=== PATIENT | female | born 1975 | race Caucasian/White ===

== ENCOUNTER 2022-02-14 23:16 | Inpatient (IN) | payer MEDICARE, OTHER ==
[2022-02-14] MEDS ORDERED: ZIPRASIDONE 20 MG VIAL IM STA (23:46)
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
[2022-02-15 07:52] LABS: Appearance,Urine Clear (Clear); Bilirubin,Urine Negative (Negative); Blood,Urine Negative (Negative); Color,Urine Colorless; Glucose,Urine (UA) 4+ (Negative); Ketones,Urine Negative (Negative); Leukocyte Esterase,Urine Negative (Negative); Nitrite,Urine Negative (Negative); Protein,Urine Negative (Negative); Specific Gravity,Urine 1.003 (1.001-1.035); Urobilinogen,Urine <2.0 mg/dL (<2.0)
[2022-02-15 08:02] LABS: Amphetamine Screen,Urine Not Detected (NotDetected); Barbiturate Screen,Urine Not Detected (NotDetected); Benzodiazepines Screen,Urine Not Detected (NotDetected); Cocaine Screen,Urine Not Detected (NotDetected); Methadone Screen, Urine Not Detected (NotDetected); Opiate Screen,Urine Not Detected (NotDetected); Oxycodone Screen, Urine Not Detected (NotDetected); Phencyclidine Screen,Urine Not Detected (NotDetected); Tricyclic Antidepressant,Urine Not Detected (NotDetected); Urn Cannabinoid Scrn Detected (NotDetected)
[2022-02-15] MEDS ORDERED: MAGNESIUM HYDROXIDE 2,400 MG/10 ML CUP PO PRN (14:10)
[2022-02-15] MEDS ORDERED: MAG HYDROX/AL HYDROX/SIMETH 30 ML CUP PO PRN (14:10)
[2022-02-15] MEDS ORDERED: HALOPERIDOL LACTATE 5 MG/ML 1 ML VIAL IM PRN (14:10)
[2022-02-15] MEDS ORDERED: LORazepam 2 MG/ML INJ IM PRN (14:14)
[2022-02-15] MEDS ORDERED: haloperidoL 5 MG TAB PO PRN (14:15)
[2022-02-15] MEDS: LORazepam 1 MG TAB PO PRN ×2 (14:37→23:36)
[2022-02-15] MEDS ORDERED: diazePAM 5 MG TAB PO SCH (16:00)
[2022-02-15] MEDS: chlordiazePOXIDE 25 MG CAP PO SCH ×2 (16:23→21:41)
[2022-02-15] MEDS: NICOTINE GUM (POLACRILEX) 2 MG GUM BUCCAL PRN ×2 (16:23→20:06)
--- NOTE | 2022-02-15 16:36 | P.CONS ---
History of Present Illness - Reason for Consult Consult date: 02/15/22 - History of Present Illness Patient is a 46-year-old female with PMH of hypertension, diabetes mellitus that presents to the ED for behavioral disturbances. She's been admitted to mental health unit for further management of her symptoms. [facility] been consulted for medical management of this patient. Patient reports history of hypertension that is uncontrolled. She was initially started on lisinopril 20 mg by mouth daily and hydrochlorothiazide 12.5 mg by mouth daily by her PCP. She got lost to follow-up and has not taken any medications over the past 6 months. Patient also reports history of diabetes mellitus. She reports her A1c to be around 9. She was started on metformin 500 mg by mouth twice a day by her PCP. She lost to follow-up and has not taken any medication over the past 6 months. Patient states that she is a daily drinker. She drinks anywhere from a pint to a fifth of liquor daily. She denies any withdrawal symptoms. She currently complains of irritability and anxiousness. Patient received Ativan by mouth and states that this helps her symptoms. She also reports smoking a pack of cigarettes daily for many years. Patient denies any headache, lower extremity edema, nausea or vomiting, fever or chills, cough, chest pain, shortness of breath, palpitations, changes in urination or bowel habits. No changes in appetite or weight. She denies any dizziness, numbness/weakness/tingling of the extremities. Review of systems was performed and is negative except above. General: non toxic, no distress, appears at stated age Derm: warm, dry Head: atraumatic, normocephalic, symmetric Eyes: EOMI, no lid lag, anicteric sclera Mouth: no lip lesion, mucus membranes moist Cardiovascular: Tachycardic, no murmur, positive posterior tibial pulse bilateral, Lungs: CTA bilateral, no rhonchi, no rales , no accessory muscle use Abdominal: soft, nontender to palpation, no guarding, no appreciable organomegaly Ext: no gross muscle atrophy, no edema, no contractures Neuro: CN II-XI grossly intact, no focal neuro deficits Psych: Alert, oriented, appropriate affect #Hypertension #Diabetes mellitus #Alcohol abuse #Nicotine abuse #Marijuana use #Morbid obesity Patient be restarted on lisinopril 20 mg by mouth daily, hydrochlorothiazide 0.5 mg by mouth daily. Vital signs will be monitored and medication adjusted if necessary. Patient reports taking metformin 500 mg by mouth twice a day. Urinalysis shows 4+ glucose. Patient be started on low-dose sliding scale with Accu-Cheks 4 times a day and hypoglycemic precautions Follow A1c, TSH and Lipid panel. Patient will be placed on CIWA protocol and given Ativan as needed. Continue thiamine and folic acid. Started on Librium and Valium by psychiatry. Patient has been offered a nicotine patch. Patient has been encouraged to quit any illicit drug use. Patient would benefit from a structured weight loss program. Thank you for this consultation. Please call [facility] with additional questions or concerns. Past Medical History History of Any Multi-Drug Resistant Organisms: None Reported Smoking Status: Current every day smoker Medications and Allergies Home Medications Medication Instructions Recorded Confirmed Type No Known Home Medications 02/15/22 02/15/22 History Allergies Allergy/AdvReac Type Severity Reaction Status Date / Time No Known Allergies Allergy Unverified 02/15/22 16:10 Physical Exam Vitals: Vital Signs Temp Pulse Pulse Resp BP BP Pulse Ox 02/15/22 16:19 98 16 176/97 02/15/22 04:59 71 15 129/77 99 02/15/22 00:00 98.2 F 88 15 144/88 97 Intake and Output 02/15/22 02/15/22 02/15/22 06:59 14:59 22:59 Other: Weight 113.398 kg Results Labs: Abnormal Lab Results - Last 24 Hours (Table) 02/15/22 Range/Units 07:26 Urine Glucose (UA) 4+ H (Negative) U Marijuana (THC) Screen Detected H (NotDetected)
[2022-02-15 17:49] LABS: Glucose,Whole Blood 152 mg/dL (70-110)
[2022-02-15] MEDS: LISINOPRIL-HCTZ 20-12.5 MG 1 EACH TAB PO SCH (18:02)
[2022-02-15] MEDS: INSULIN ASPART (NovoLOG) 100 UNIT/ML VIAL SQ SCH ×2 (18:03→20:06)
[2022-02-15 19:41] LABS: Glucose,Whole Blood 153 mg/dL (70-110)
[2022-02-15] MEDS: ACETAMINOPHEN TAB 325 MG TAB PO PRN (23:37)
[2022-02-16 07:55] LABS: Glucose,Whole Blood 169 mg/dL (70-110)
[2022-02-16] MEDS: INSULIN ASPART (NovoLOG) 100 UNIT/ML VIAL SQ SCH ×4 (08:52→19:57)
[2022-02-16] MEDS: LISINOPRIL-HCTZ 20-12.5 MG 1 EACH TAB PO SCH (08:53)
[2022-02-16] MEDS: FOLIC ACID 1 MG TAB PO SCH (08:53)
[2022-02-16] MEDS: THIAMINE 100 MG TAB PO SCH (08:54)
[2022-02-16] MEDS: MULTIVITAMINS, THERA 1 EACH TAB PO SCH (08:54)
[2022-02-16] MEDS: chlordiazePOXIDE 25 MG CAP PO SCH ×3 (08:54→23:18)
[2022-02-16] MEDS: NICOTINE GUM (POLACRILEX) 2 MG GUM BUCCAL PRN ×2 (08:56→14:46)
[2022-02-16 10:08] LABS: Anisocytosis Slight; Basophils # (A) 0.1 k/uL (0-0.2); Basophils % (A) 1 %; Eosinophils # (A) 0.1 k/uL (0-0.7); Eosinophils % (A) 1 %; HCT 41.6 % (34.0-46.0); HGB 12.9 gm/dL (11.4-16.0); Hypochromasia Slight; Lymphocytes # (A) 2.1 k/uL (1.0-4.8); Lymphocytes % (A) 30 %; MCH 25.5 pg (25.0-35.0); MCHC 30.9 g/dL (31.0-37.0); MCV 82.6 fL (80.0-100.0); Mean Platelet Volume 7.2; Monocytes # (A) 0.6 k/uL (0-1.0); Monocytes % (A) 8 %; Neutrophils % (A) 57 %; Platelet Count 285 k/uL (150-450); RBC 5.04 m/uL (3.80-5.40); RDW 16.7 % (11.5-15.5)
[2022-02-16 10:27] LABS: ALT 106 U/L (4-34); AST 134 U/L (14-36); African American GFR (CKD) >90 (>60 ml/min/1.73 sqM); Albumin 4.3 g/dL (3.5-5.0); Alkaline Phosphatase 107 U/L (38-126); Anion Gap 14 mmol/L; Blood Urea Nitrogen 11 mg/dL (7-17); Calcium 9.3 mg/dL (8.4-10.2); Carbon Dioxide 25 mmol/L (22-30); Chloride 95 mmol/L (98-107); Glucose 272 mg/dL (74-99); Non-African American GFR(CKD) >90 (>60 ml/min/1.73 sqM); Potassium 4.2 mmol/L (3.5-5.1); Sodium 134 mmol/L (137-145); Total Bilirubin 0.9 mg/dL (0.2-1.3); Total Protein 7.2 g/dL (6.3-8.2)
[2022-02-16] MEDS: LORazepam 1 MG TAB PO PRN ×2 (11:24→20:00)
[2022-02-16 12:43] LABS: Glucose,Whole Blood 182 mg/dL (70-110)
[2022-02-16] MEDS: amLODIPine 10 MG TAB PO SCH (14:46)
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
[2022-02-16 17:31] LABS: Glucose,Whole Blood 152 mg/dL (70-110)
[2022-02-16] MEDS: VENLAFAXINE HCL ER 75 MG CAP PO SCH (17:57)
[2022-02-16 19:55] LABS: Glucose,Whole Blood 179 mg/dL (70-110)
[2022-02-16] MEDS: MIRTAZAPINE 15 MG TAB PO SCH (23:18)
[2022-02-17 07:56] LABS: Glucose,Whole Blood 177 mg/dL (70-110)
[2022-02-17 08:16] LABS: LDL Cholesterol,Calculated 88.3 mg/dL (0.0-131.0)
[2022-02-17] MEDS: LISINOPRIL-HCTZ 20-12.5 MG 1 EACH TAB PO SCH (08:42)
[2022-02-17] MEDS: NICOTINE GUM (POLACRILEX) 2 MG GUM BUCCAL PRN ×3 (08:42→20:59)
[2022-02-17] MEDS: amLODIPine 10 MG TAB PO SCH (08:42)
[2022-02-17] MEDS: VENLAFAXINE HCL ER 75 MG CAP PO SCH (08:42)
[2022-02-17] MEDS: LORazepam 1 MG TAB PO PRN ×2 (08:42→20:59)
[2022-02-17] MEDS: chlordiazePOXIDE 25 MG CAP PO SCH ×4 (08:42→20:59)
[2022-02-17] MEDS: MULTIVITAMINS, THERA 1 EACH TAB PO SCH (08:42)
[2022-02-17] MEDS: INSULIN ASPART (NovoLOG) 100 UNIT/ML VIAL SQ SCH ×4 (08:42→21:06)
[2022-02-17] MEDS: THIAMINE 100 MG TAB PO SCH (08:42)
[2022-02-17] MEDS: FOLIC ACID 1 MG TAB PO SCH (08:43)
[2022-02-17] MEDS ORDERED: ONDANSETRON 4 MG TAB PO PRN (11:43)
--- NOTE | 2022-02-17 11:47 | P.PN ---
Progress Note - Text Progress Note Date: 02/17/22 Interval History: Patient was seen lying in her bed this morning and was directable and agreeable to speak with group underwriter in the office. She appeared to be fairly tearful and having elevated anxiety disorder. She states she has been drinking fairly heavily for the past several months. She claims that she has several stressors going on including a CPS (investigation on her and her child. She claims her other daughter was taken away from her from CPS and she is worried about this now. She states she does have passive suicidal thoughts. She spoke more about the events that occurred prior to her coming into the hospital. She states that she is interested in getting treatment for alcohol use. She claims that she was able to see better last night. She states that she does have nightmares related to trauma that happen very frequently. At this time patient denies any suicidal or homical ideations, intent or plan. Patient denies any auditory, visual hallucinations and denies any paranoia or delusions. Patient denies any side effects from the medications and has been compliant with meds. Mental Status Exam: General Appearance: Patient appears to be stated age, obese, fair hygiene and grooming. Behavior: Patient is seated without any agitated behavior, is tearful, sobbing. Appears to be anxious Speech: Patient's speech is fluent and non-pressured. Mood/Affect: Patient reports their mood is depressed and anxious, affect is congruent, tearful Suicidality/Homicidality: Patient denies having any homicidal ideation intent or plan. She endorses suicidal thoughts, no intent or plan. Perceptions: Patient denies any visual hallucinations and denies any auditory hallucinations. Though content/process: There is no evidence of any delusional thought content and thought process is linear and goal-directed. Racing thoughts, no delusions. Memory and concentration: AOX3, grossly intact for the purposes of this session Judgment and insight: poor IMPRESSIONS: Major depressive disorder, recurrent, severe without psychotic PTSD Borderline personality disorder, by history Alcohol use disorder, severe nicotine dependence Plan: -Patient continues to meet criteria for inpatient psychiatric admission for symptom stabilization and safety. Patient has signed adult voluntary form and medication consent and was placed in patient's chart. -Medications: Librium 25 mg 4 times a day for etoh withdrawal, increase Effexor XR 150 mg daily for depression/anxiety, Remeron 7.5 mg QHS for depression/sleep. prazosin 1 mg qhs for nightmares -When necessary Ativan and Haldol for agitation/aggression. -thiamine, MVM for etoh use. -CIWA protocol with Ativan PRN for ETOH withdrawal -NRT - nicotine patch -SW on board for discharge planning. Encouraged the patient to participate in milieu. Patient states that she may be interested in rehab.
[2022-02-17 13:03] LABS: Glucose,Whole Blood 159 mg/dL (70-110)
[2022-02-17] MEDS: ACETAMINOPHEN TAB 325 MG TAB PO PRN (16:47)
[2022-02-17 17:46] LABS: Glucose,Whole Blood 164 mg/dL (70-110)
[2022-02-17 20:58] LABS: Glucose,Whole Blood 161 mg/dL (70-110)
[2022-02-17] MEDS: PRAZOSIN 1 MG CAP PO SCH (20:59)
[2022-02-17] MEDS: MIRTAZAPINE 15 MG TAB PO SCH (23:28)
[2022-02-18] MEDS: ACETAMINOPHEN TAB 325 MG TAB PO PRN (05:43)
[2022-02-18 07:51] LABS: Glucose,Whole Blood 187 mg/dL (70-110)
[2022-02-18] MEDS: INSULIN ASPART (NovoLOG) 100 UNIT/ML VIAL SQ SCH ×4 (08:24→20:25)
[2022-02-18] MEDS: NICOTINE GUM (POLACRILEX) 2 MG GUM BUCCAL PRN ×2 (08:57→19:59)
[2022-02-18] MEDS: FOLIC ACID 1 MG TAB PO SCH (08:57)
[2022-02-18] MEDS: VENLAFAXINE HCL ER 150 MG CAP PO SCH (08:57)
[2022-02-18] MEDS: THIAMINE 100 MG TAB PO SCH (08:57)
[2022-02-18] MEDS: chlordiazePOXIDE 25 MG CAP PO SCH (08:57)
[2022-02-18] MEDS: LISINOPRIL-HCTZ 20-12.5 MG 1 EACH TAB PO SCH (08:57)
[2022-02-18] MEDS: amLODIPine 10 MG TAB PO SCH (08:57)
[2022-02-18] MEDS: MULTIVITAMINS, THERA 1 EACH TAB PO SCH (08:57)
--- NOTE | 2022-02-18 11:14 | P.PN ---
Progress Note - Text Progress Note Date: 02/18/22 Interval History: Patient was seen in her room this morning and was directable and agreeable to speak with property underwriter in the office. She continues to appear to be fairly anxious however states that her mood has been improving. She states that she feels her "anxiety is worse today". She claims that it is mainly because she is thinking about her future when she gets out of the hospital and that "I'm going back to a house full of drinking". She claims that she is interested in going to rehab [facility] once either go to a day program or somewhere where she can take her daughter. She states that she was able to sleep better last night and did not have any nightmares. She claims that she does not have any more suicidal thoughts today and is more future oriented. She states that she did go to 1 group today which she thinks helps. At this time patient denies any suicidal or homical ideations, intent or plan. Patient denies any auditory, visual hallucinations and denies any paranoia or delusions. Patient denies any side effects from the medications and has been compliant with meds. Mental Status Exam: General Appearance: Patient appears to be stated age, obese, fair hygiene and grooming. Behavior: Patient is seated without any agitated behavior, is not tearful. Appears to be anxious, improving mildly Speech: Patient's speech is fluent and non-pressured. hesitant Mood/Affect: Patient reports their mood is depressed and anxious, improving mildly, affect is congruent Suicidality/Homicidality: Patient denies having any homicidal ideation intent or plan. She deneis any suicidal thoughts, no intent or plan. Perceptions: Patient denies any visual hallucinations and denies any auditory hallucinations. Though content/process: There is no evidence of any delusional thought content and thought process is linear and goal-directed. Racing thoughts, no delusions. Memory and concentration: AOX3, grossly intact for the purposes of this session Judgment and insight: improving mildly IMPRESSIONS: Major depressive disorder, recurrent, severe without psychotic PTSD Borderline personality disorder, by history Alcohol use disorder, severe Nicotine dependence Plan: -Patient continues to meet criteria for inpatient psychiatric admission for symptom stabilization and safety. Patient has signed adult voluntary form and medication consent and was placed in patient's chart. -Medications: Librium 20 mg 3 times a day for etoh withdrawal, Effexor XR 150 mg daily for depression/anxiety, likely increase tomorrow, Remeron 7.5 mg QHS for depression/sleep. prazosin 1 mg qhs for nightmares -When necessary Ativan and Haldol for agitation/aggression -thiamine, MVM for etoh use. -CIWA protocol with Ativan PRN for ETOH withdrawal -NRT - nicotine patch -SW on board for discharge planning. Encouraged the patient to participate in milieu. Patient states that she may be interested in rehab but is concerned about her daughter
[2022-02-18] MEDS: NICOTINE 14MG/24HR PATCH TRANSDERM SCH (11:17)
[2022-02-18] MEDS: LORazepam 1 MG TAB PO PRN ×2 (11:21→21:11)
[2022-02-18 12:46] LABS: Glucose,Whole Blood 132 mg/dL (70-110)
[2022-02-18 19:13] LABS: Glucose,Whole Blood 144 mg/dL (70-110)
[2022-02-18 20:16] LABS: Glucose,Whole Blood 212 mg/dL (70-110)
[2022-02-18] MEDS: PRAZOSIN 1 MG CAP PO SCH (22:42)
[2022-02-18] MEDS: MIRTAZAPINE 15 MG TAB PO SCH (22:42)
[2022-02-19 07:51] LABS: Glucose,Whole Blood 150 mg/dL (70-110)
[2022-02-19] MEDS: INSULIN ASPART (NovoLOG) 100 UNIT/ML VIAL SQ SCH ×4 (08:08→21:32)
[2022-02-19] MEDS: FOLIC ACID 1 MG TAB PO SCH (08:34)
[2022-02-19] MEDS: amLODIPine 10 MG TAB PO SCH (08:34)
[2022-02-19] MEDS: VENLAFAXINE HCL ER 150 MG CAP PO SCH (08:34)
[2022-02-19] MEDS: THIAMINE 100 MG TAB PO SCH (08:35)
[2022-02-19] MEDS: LORazepam 1 MG TAB PO PRN ×2 (08:35→20:06)
[2022-02-19] MEDS: NICOTINE GUM (POLACRILEX) 2 MG GUM BUCCAL PRN ×3 (08:35→21:32)
[2022-02-19] MEDS: MULTIVITAMINS, THERA 1 EACH TAB PO SCH (08:35)
[2022-02-19] MEDS: LISINOPRIL-HCTZ 20-12.5 MG 1 EACH TAB PO SCH (08:37)
[2022-02-19] MEDS: NICOTINE 14MG/24HR PATCH TRANSDERM SCH (08:37)
[2022-02-19] MEDS ORDERED: LOPERAMIDE 2 MG CAP PO PRN (09:38)
[2022-02-19] MEDS ORDERED: PROPRANOLOL 20 MG TAB PO PRN (09:41)
--- NOTE | 2022-02-19 09:50 | P.PN ---
Progress Note - Text Progress Note Date: 02/19/22 Interval History: Patient was seen in her room this morning and was directable and agreeable to speak with commercial loan underwriter in the office. She continues to state that she feels anxious today and states that her mood has been improving. She was agreeable to have her effexor increased. She does appear to be more comfortable and less anxious affect. She states that she is missing her daughter and knows that the environment at home is too "toxic" and claims her mother drinks around her alot. She states that she was able to sleep better last night and did not have any nightmares. she remains interested in rehab and will call them today. She claims that she does not have any more suicidal thoughts today and is more future oriented. At this time patient denies any suicidal or homical ideations, intent or plan. Patient denies any auditory, visual hallucinations and denies any paranoia or delusions. Patient denies any side effects from the medications and has been compliant with meds. Mental Status Exam: General Appearance: Patient appears to be stated age, obese, fair hygiene and grooming. Behavior: Patient is seated without any agitated behavior, is not tearful. Appears to be less anxious Speech: Patient's speech is fluent and non-pressured. Mood/Affect: Patient reports their mood is depressed and anxious, improving mildly, affect is congruent Suicidality/Homicidality: Patient denies having any homicidal ideation intent or plan. She deneis any suicidal thoughts, no intent or plan. Perceptions: Patient denies any visual hallucinations and denies any auditory hallucinations. Though content/process: There is no evidence of any delusional thought content and thought process is linear and goal-directed. no delusions. Memory and concentration: AOX3, grossly intact for the purposes of this session Judgment and insight: improving mildly IMPRESSIONS: Major depressive disorder, recurrent, severe without psychotic PTSD Borderline personality disorder, by history Alcohol use disorder, severe Nicotine dependence Plan: -Patient continues to meet criteria for inpatient psychiatric admission for symptom stabilization and safety. Patient has signed adult voluntary form and medication consent and was placed in patient's chart. -Medications: decrease Librium 10 mg 4 times a day for etoh withdrawal, increase Effexor XR 225 mg daily for depression/anxiety, Remeron 7.5 mg QHS for depression/sleep. prazosin 1 mg qhs for nightmares -When necessary Ativan and Haldol for agitation/aggression -thiamine, MVM for etoh use -CIWA protocol with Ativan PRN for ETOH withdrawal -NRT - nicotine patch -SW on board for discharge planning. Encouraged the patient to participate in milieu. Patient states that she is interested in rehab, and will make the call through to access line today to get a date at
[2022-02-19 12:32] LABS: Glucose,Whole Blood 163 mg/dL (70-110)
[2022-02-19 17:33] LABS: Glucose,Whole Blood 139 mg/dL (70-110)
[2022-02-19 21:33] LABS: Glucose,Whole Blood 216 mg/dL (70-110)
[2022-02-19] MEDS: PRAZOSIN 1 MG CAP PO SCH (23:21)
[2022-02-19] MEDS: MIRTAZAPINE 15 MG TAB PO SCH (23:21)
[2022-02-20 07:47] LABS: Glucose,Whole Blood 157 mg/dL (70-110)
[2022-02-20] MEDS: INSULIN ASPART (NovoLOG) 100 UNIT/ML VIAL SQ SCH ×4 (07:54→20:22)
[2022-02-20] MEDS: FOLIC ACID 1 MG TAB PO SCH (08:41)
[2022-02-20] MEDS: LISINOPRIL-HCTZ 20-12.5 MG 1 EACH TAB PO SCH (08:41)
[2022-02-20] MEDS: MULTIVITAMINS, THERA 1 EACH TAB PO SCH (08:41)
[2022-02-20] MEDS: THIAMINE 100 MG TAB PO SCH (08:41)
[2022-02-20] MEDS: NICOTINE 14MG/24HR PATCH TRANSDERM SCH (08:41)
[2022-02-20] MEDS: NICOTINE GUM (POLACRILEX) 2 MG GUM BUCCAL PRN ×3 (08:41→21:37)
[2022-02-20] MEDS: amLODIPine 10 MG TAB PO SCH (08:42)
[2022-02-20] MEDS: VENLAFAXINE HCL ER 75 MG CAP PO SCH (08:44)
[2022-02-20] MEDS ORDERED: LORazepam 1 MG TAB PO PRN (10:06)
[2022-02-20] MEDS ORDERED: LORazepam 0.5 MG TAB PO PRN (10:08)
[2022-02-20 12:50] LABS: Glucose,Whole Blood 152 mg/dL (70-110)
--- NOTE | 2022-02-20 13:13 | P.PN ---
Progress Note - Text Progress Note Date: 02/20/22 Interval History: Patient was seen taking part in group this morning and was directable and agre eable to speak with scientific technical writer in the office. She continues to state that she feels anxious today however does state that this has been improving mildly since yesterday. She states that she is "very nervous" about calling her sister. She claims that her mood has been gradually improving as well. She claims that she has been on 300 mg dose of Effexor in the past which has helped her and we may consider increasing over the weekend. She states that she is very nervous about being discharged back home and claims that she will most likely relapse as there is "alcohol everywhere" and states that her mother does drink in fiber. She states that she wants to get in and directly transferred to [place] when she gets a intake date. She claims that she was able to sleep better last night and claims that she does not have any neighbors. Claims that she has been going to groups. States that her appetite is improving. She claims that she does not have any more suicidal thoughts today. At this time patient denies any suicidal or homical ideations, intent or plan. Patient denies any auditory, visual hallucinations and denies any paranoia or delusions. Patient denies any side effects from the medications and has been compliant with meds. Mental Status Exam: General Appearance: Patient appears to be stated age, obese, fair hygiene and grooming. Behavior: Patient is seated without any agitated behavior, is not tearful. Appears to be less anxious Speech: Patient's speech is fluent and non-pressured. Mood/Affect: Patient reports their mood is anxious, improving mildly, affect is congruent Suicidality/Homicidality: Patient denies having any homicidal ideation intent or plan. She deneis any suicidal thoughts, no intent or plan. Perceptions: Patient denies any visual hallucinations and denies any auditory hallucinations. Though content/process: There is no evidence of any delusional thought content and thought process is linear and goal-directed. no delusions. Memory and concentration: AOX3, grossly intact for the purposes of this session Judgment and insight: improving mildly IMPRESSIONS: Major depressive disorder, recurrent, severe without psychotic PTSD Borderline personality disorder, by history Alcohol use disorder, severe Nicotine dependence Plan: -Patient continues to meet criteria for inpatient psychiatric admission for symptom stabilization and safety. Patient has signed adult voluntary form and medication consent and was placed in patient's chart. -Medications: decrease Librium 10 mg 3 times a day for etoh withdrawal, Effexor XR 225 mg daily for depression/anxiety, can consider increasing to 300 mg tomorrow or over the weekend if needed, increase Remeron 15 mg QHS for depression/sleep. prazosin 1 mg qhs for nightmares -When necessary Ativan and Haldol for agitation/aggression -thiamine, MVM for etoh use -CIWA protocol with Ativan PRN for ETOH withdrawal -NRT - nicotine patch -SW on board for discharge planning. Encouraged the patient to participate in milieu. Patient states that she is interested in rehab and made the call to access. Patient is at very high risk of relapse due to her elevated anxiety and poor social support at home with regards to drinking as her mother is currently drinking at home. Patient should be attempted to be discharged directly to [place] to avoid relapse and ensure safety.
[2022-02-20 17:52] LABS: Glucose,Whole Blood 142 mg/dL (70-110)
[2022-02-20 20:21] LABS: Glucose,Whole Blood 243 mg/dL (70-110)
[2022-02-20] MEDS ORDERED: MIRTAZAPINE 15 MG TAB PO SCH (21:00)
[2022-02-20] MEDS: PRAZOSIN 1 MG CAP PO SCH (23:03)
[2022-02-21 07:53] LABS: Glucose,Whole Blood 141 mg/dL (70-110)
[2022-02-21] MEDS: INSULIN ASPART (NovoLOG) 100 UNIT/ML VIAL SQ SCH ×4 (08:35→20:40)
[2022-02-21] MEDS: amLODIPine 10 MG TAB PO SCH (08:36)
[2022-02-21] MEDS: VENLAFAXINE HCL ER 75 MG CAP PO SCH (08:37)
[2022-02-21] MEDS: MULTIVITAMINS, THERA 1 EACH TAB PO SCH (08:37)
[2022-02-21] MEDS: THIAMINE 100 MG TAB PO SCH (08:37)
[2022-02-21] MEDS: LISINOPRIL-HCTZ 20-12.5 MG 1 EACH TAB PO SCH (08:37)
[2022-02-21] MEDS: FOLIC ACID 1 MG TAB PO SCH (08:37)
[2022-02-21] MEDS: NICOTINE 14MG/24HR PATCH TRANSDERM SCH (08:37)
[2022-02-21] MEDS: NICOTINE GUM (POLACRILEX) 2 MG GUM BUCCAL PRN ×4 (08:38→20:40)
[2022-02-21 12:31] LABS: Glucose,Whole Blood 146 mg/dL (70-110)
--- NOTE | 2022-02-21 17:23 | P.PN ---
Subjective Progress Note Date: 02/21/22 Principal diagnosis: Interval History: Patient was seen napping in her bed and was directable and agreeable to speak with investment underwriter. She reports good mood, sleep and appetite. She reports feeling oversedated from increasing the Remeron to 15 mg QHS and would like to decrease it back to 7.5 mg QHS. She denies it is the Librium making her tired, but we discussed this will need to tapered and discontinued before she leaves for [place] on Thursday and she agrees. She denies alcohol withdrawal symptoms. At this time patient denies any suicidal or homicidal ideations, intent or plan. Patient denies any auditory, visual hallucinations and denies any paranoia or delusions. Patient has been compliant with meds. Mental Status Exam: General Appearance: Patient appears to be stated age, obese, fair hygiene and grooming. Behavior: Patient is laying without any agitated behavior. Speech: Patient's speech is fluent and non-pressured. Mood/Affect: Patient reports their mood is improving mildly, affect is congruent Suicidality/Homicidality: Patient denies having any suicidal or homicidal ideation intent or plan. S Perceptions: Patient denies any visual hallucinations and denies any auditory hallucinations. Though content/process: There is no evidence of any delusional thought content and thought process is linear and goal-directed. no delusions. Memory and concentration: AOX3, grossly intact for the purposes of this session Judgment and insight: improving mildly IMPRESSIONS: Major depressive disorder, recurrent, severe without psychotic features PTSD Borderline personality disorder, by history Alcohol use disorder, severe Nicotine dependence Plan: -Patient continues to meet criteria for inpatient psychiatric admission for symptom stabilization and safety. Patient has signed adult voluntary form and medication consent and was placed in patient's chart. -Medications: Decrease Librium to 10 mg BID x 2 days then discontinue, for etoh withdrawal, Continue Effexor XR 225 mg daily for depression/anxiety Decrease Remeron back to 7.5 mg QHS for depression/sleep. Continue Prazosin 1 mg qhs for nightmares. -When necessary Ativan and Haldol for agitation/aggression -thiamine, MVM for etoh use -CIWA protocol with Ativan PRN for ETOH withdrawal -NRT - nicotine patch -SW on board for discharge planning. Encouraged the patient to participate in milieu. Plan to discharge directly to [place] on Thursday02/23/22, to avoid relapse and ensure safety. Objective - Vital Signs Vital signs: Vital Signs Temp 97.2 F L 02/20/22 06:40 Pulse 91 02/20/22 08:45 Resp 16 02/20/22 06:40 BP 139/79 02/20/22 08:45 Pulse Ox 97 02/19/22 07:12 FiO2 - Labs CBC & Chem 7: 02/16/22 09:33 02/16/22 09:33 Labs: Abnormal Lab Results - Last 24 Hours (Table) 02/20/22 02/20/22 02/21/22 Range/Units 17:50 20:18 07:49 POC Glucose (mg/dL) 142 H 243 H 141 H (70-110) mg/dL 02/21/22 Range/Units 12:28 POC Glucose (mg/dL) 146 H (70-110) mg/dL
[2022-02-21 17:51] LABS: Glucose,Whole Blood 157 mg/dL (70-110)
[2022-02-21 20:38] LABS: Glucose,Whole Blood 206 mg/dL (70-110)
[2022-02-21] MEDS: MIRTAZAPINE 15 MG TAB PO SCH (21:48)
[2022-02-21] MEDS: PRAZOSIN 1 MG CAP PO SCH (21:48)
[2022-02-22 08:08] LABS: Glucose,Whole Blood 157 mg/dL (70-110)
[2022-02-22] MEDS: INSULIN ASPART (NovoLOG) 100 UNIT/ML VIAL SQ SCH ×4 (08:12→20:26)
[2022-02-22] MEDS: NICOTINE 14MG/24HR PATCH TRANSDERM SCH (09:19)
[2022-02-22] MEDS: FOLIC ACID 1 MG TAB PO SCH (09:20)
[2022-02-22] MEDS: amLODIPine 10 MG TAB PO SCH (09:20)
[2022-02-22] MEDS: VENLAFAXINE HCL ER 75 MG CAP PO SCH (09:20)
[2022-02-22] MEDS: THIAMINE 100 MG TAB PO SCH (09:20)
[2022-02-22] MEDS: MULTIVITAMINS, THERA 1 EACH TAB PO SCH (09:20)
[2022-02-22] MEDS: LISINOPRIL-HCTZ 20-12.5 MG 1 EACH TAB PO SCH (09:25)
[2022-02-22] MEDS: ACETAMINOPHEN TAB 325 MG TAB PO PRN (09:27)
[2022-02-22 13:02] LABS: Glucose,Whole Blood 121 mg/dL (70-110)
[2022-02-22] MEDS: NICOTINE GUM (POLACRILEX) 2 MG GUM BUCCAL PRN ×3 (13:34→23:08)
--- NOTE | 2022-02-22 15:41 | P.PN ---
Progress Note - Text Progress Note Date: 02/22/22 Interval History: Patient was seen napping in her bed and was directable and agreeable to speak w ith speech writer on awakening. She reports good mood, sleep and appetite. We discussed her pending discharge to [place] tomorrow and she is looking forward to it. She will finalize details with her mother today who is picking her up. She will need her glucomoter from home which she will ask her mother to pack for her. At this time, patient denies any suicidal or homicidal ideations, intent or plan. Patient denies any auditory, visual hallucinations and denies any paranoia or delusions. Patient has been compliant with meds and denies medication side effects. Mental Status Exam: General Appearance: Patient appears to be stated age, obese, adequate hygiene and grooming. Behavior: Patient is laying without any agitated behavior. Speech: Patient's speech is fluent and non-pressured. Mood/Affect: Patient reports stable mood/good mood, affect is congruent and euthymic. Suicidality/Homicidality: Patient denies having any suicidal or homicidal ideation intent or plan. Perceptions: Patient denies any visual hallucinations and denies any auditory hallucinations. Though content/process: There is no evidence of any delusional thought content and thought process is linear and goal-directed. Memory and concentration: AOX3, grossly intact for the purposes of this session Judgment and insight: improving mildly IMPRESSIONS: Major depressive disorder, recurrent, severe without psychotic features PTSD Borderline personality disorder, by history Alcohol use disorder, severe Nicotine dependence Plan: -Patient continues to meet criteria for inpatient psychiatric admission for symptom stabilization and safety. Patient has signed adult voluntary form and medication consent and was placed in patient's chart. -Medications: Continue Librium 10 mg BID for today then discontinue, for EtOH withdrawal. Continue Effexor XR 225 mg daily for depression/anxiety Continue Remeron 7.5 mg QHS for depression/sleep. Continue Prazosin 1 mg qhs for nightmares. -When necessary Ativan and Haldol for agitation/aggression -Thiamine, MVM for EtOH use -Discontinue CIWA -NRT - nicotine patch -SW on board for discharge planning. Encouraged the patient to participate in milieu. Plan to discharge directly to [place] on Thursday02/23/22, to avoid relapse and ensure safety. Prescriptions completed and will be sent to pharmacy to ensure medications are ready for tomorrow's discharge.
[2022-02-22 17:58] LABS: Glucose,Whole Blood 179 mg/dL (70-110)
[2022-02-22 20:26] LABS: Glucose,Whole Blood 172 mg/dL (70-110)
[2022-02-22] MEDS: MIRTAZAPINE 15 MG TAB PO SCH (23:06)
[2022-02-22] MEDS: PRAZOSIN 1 MG CAP PO SCH (23:06)
[2022-02-22 23:10] VITALS: RESP 16
[2022-02-23 06:59] VITALS: BP 136/87; PULSE 77; TEMP 97.2
[2022-02-23 07:58] LABS: Glucose,Whole Blood 168 mg/dL (70-110)
[2022-02-23] MEDS: MULTIVITAMINS, THERA 1 EACH TAB PO SCH (07:58)
[2022-02-23] MEDS: VENLAFAXINE HCL ER 75 MG CAP PO SCH (07:58)
[2022-02-23] MEDS: FOLIC ACID 1 MG TAB PO SCH (07:58)
[2022-02-23] MEDS: amLODIPine 10 MG TAB PO SCH (07:58)
[2022-02-23] MEDS: THIAMINE 100 MG TAB PO SCH (07:58)
[2022-02-23] MEDS: LISINOPRIL-HCTZ 20-12.5 MG 1 EACH TAB PO SCH (07:59)
[2022-02-23] MEDS: NICOTINE 14MG/24HR PATCH TRANSDERM SCH (08:00)
[2022-02-23] MEDS: NICOTINE GUM (POLACRILEX) 2 MG GUM BUCCAL PRN (08:03)
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
== END 2022-02-23 08:10 | disposition home or self-care (01) | DRG 885 ==
LOC: EC 23:16 → 3MHU 02-15 14:06
PROVIDERS: ADMIT Psychiatry & Neurology Psychiatry; ATTEND Psychiatry & Neurology Psychiatry
DX: F33.2 Major depressive disorder, recurrent severe without psychotic features (principal); F10.239 Alcohol dependence with withdrawal, unspecified; R45.851 Suicidal ideations; F43.12 Post-traumatic stress disorder, chronic; E11.9 Type 2 diabetes mellitus without complications; E66.01 Morbid (severe) obesity due to excess calories; F17.210 Nicotine dependence, cigarettes, uncomplicated; F40.10 Social phobia, unspecified; F60.3 Borderline personality disorder; I10 Essential (primary) hypertension; Z63.72 Alcoholism and drug addiction in family; Z79.899 Other long term (current) drug therapy; Z81.1 Family history of alcohol abuse and dependence; Z91.51 Personal history of suicidal behavior
CPT/HCPCS: 80053; 80061; 80306; 81003; 81025; 82075; 83036; 84443; 85025; 99285

== ENCOUNTER 2023-03-30 21:20 | Emergency (ER) | payer MEDICARE, OTHER ==
[2023-03-30] MEDS ORDERED: LIDOCAINE 1% INJ 10MG/ML (20 ML MDV) SQ ONE ×2 (21:41→22:22)
[2023-03-30] MEDS ORDERED: DIPH,PERTUS(ACELL)TETVAC-LF 0.5 ML VIAL IM ONE (21:42)
--- NOTE | 2023-03-30 21:43 | ED ---
General Adult HPI - General Stated complaint: Wrist lacerations Time Seen by Provider: 03/30/23 21:42 Source: RN notes reviewed - History of Present Illness Initial comments: 47-year-old female presents to the emergency department with a chief complaint of self-harm. Patient reports she did ingest some alcohol today. She does report that she cut her wrists an attempt to harm herself, however she denies any active suicidal ideation at this time. She denies homicidal ideation. She denies any visual or auditory hallucinations. Patient reports she was approximately 1 year sober however she had relapsed with alcohol. Patient reports increased stress at home. - Related Data Home Medications Medication Instructions Recorded Confirmed Atorvastatin [Lipitor] 20 mg PO HS 03/31/23 03/31/23 Dulaglutide [Trulicity] 3 mg SQ WE 03/31/23 03/31/23 Ergocalciferol [Vitamin D2 (1250 1,250 mcg PO WE 03/31/23 03/31/23 Mcg = 03751 Iu)] Lisinopril-Hctz 20-25 mg 1 tab PO DAILY 03/31/23 03/31/23 [Zestoretic 20-25] Naltrexone HCl [Revia] 50 mg PO HS 03/31/23 03/31/23 cloNIDine HCL [Catapres] 0.1 mg PO BID PRN 03/31/23 03/31/23 lamoTRIgine [LaMICtal] 150 mg PO DAILY 03/31/23 03/31/23 Previous Rx's Medication Instructions Recorded amLODIPine [Norvasc] 10 mg PO DAILY 30 Days #30 tab 02/22/22 Prazosin [Minipress] 1 mg PO HS #14 capsule 03/12/22 Venlafaxine HCl ER [Effexor Xr] 225 mg PO DAILY #14 cap 03/12/22 Allergies Allergy/AdvReac Type Severity Reaction Status Date / Time No Known Allergies Allergy Unverified 03/30/23 21:47 Review of Systems ROS Statement: Those systems with pertinent positive or pertinent negative responses have been documented in the HPI. ROS Other: All systems not noted in ROS Statement are negative. Past Medical History History of Any Multi-Drug Resistant Organisms: None Reported Smoking Status: Current every day smoker General Exam - General Exam Comments Initial Comments: Visual Physical Exam Vital signs reviewed General: Well-appearing, nontoxic, no acute distress. Head: Normocephalic, atraumatic Eyes: PERRLA, EOMI ENT: Airway patent Chest: Nonlabored breathing Skin: No visual rash, normal skin tone Neuro: Alert and oriented 3 Musculoskeletal: No gross abnormalities I performed the quick note portion of this exam, verbal signature Luly Dyer PA-C General: Alert, in no acute distress Head: atraumatic normocephalic. Eyes PERRL, EOMI intact, mucous membranes moist Respiratory: Lungs clear to auscultation bilaterally Cardiovascular: Heart rate tachycardic Abdominal: Soft without guarding or rebound Extremities: Normal inspection with full range of motion and normal capillary refill, left forearm with 4 lacerations approximately 2 cm in length. With adipose tissue visualized. 2+ radial pulses. Distal neurovascularly intact. Neuroogic: alert and oriented 3, CN II-XII intact, able to ambulate with steady gait Skin: warm dry and intact with normal color Course Vital Signs 03/30/23 03/31/23 03/31/23 21:38 05:51 20:30 Temperature 98 F 98.7 F Pulse Rate 116 H 85 60 Respiratory 18 18 18 Rate Blood Pressure 141/75 141/95 136/92 O2 Sat by Pulse 98 99 99 Oximetry - Reevaluation(s) Reevaluation #1: 03/30/23 22:23 Patient medically cleared to be evaluated by EPS Reevaluation #2: 03/30/23 23:31 Case discussed with EPS who recommends inpatient psychiatric placement. Procedures - Laceration Laceration #1 Indication: laceration Site: other Size (cm): 2 Description: linear Depth: simple, single layer Anesthetic Used: lidocaine 1% Anesthesia Technique: local infiltration Amount (mls): 2 Pre-repair: wound explored, irrigated extensively Type of Sutures: other Size of Sutures: 5-0 Number of Sutures: 3 Technique: simple, interrupted Complications: pain, bleeding, nerve injury, allergic reaction Patient Tolerated Procedure: well, no complications Laceration #2 Indication: laceration Site: other (left foreaem) Description: irregular Depth: simple, single layer Anesthetic Used: lidocaine 1% Anesthesia Technique: local infiltration Amount (mls): 5 Pre-repair: wound explored, irrigated extensively Size of Sutures: 5-0, other Number of Sutures: 10 Technique: simple, interrupted Complications: pain, bleeding, nerve injury Patient Tolerated Procedure: well, no complications Laceration #3 Indication: laceration Site: other (left forearm ) Size (cm): 3 Description: linear Depth: simple, single layer Anesthetic Used: lidocaine 1% Amount (mls): 3 Pre-repair: wound explored, irrigated extensively Size of Sutures: 5-0 Number of Sutures: 6 Technique: simple, interrupted Complications: pain, bleeding, nerve injury Patient Tolerated Procedure: well, no complications Laceration #4 Indication: laceration Site: other (left foreaem ) Description: linear Depth: simple, single layer Anesthetic Used: lidocaine 1% Anesthesia Technique: local infiltration Amount (mls): 2 Pre-repair: wound explored, irrigated extensively Type of Sutures: other Size of Sutures: 5-0 (3) Technique: simple, interrupted Complications: pain, bleeding, nerve injury Patient Tolerated Procedure: well, no complications Medical Decision Making - Medical Decision Making Was pt. sent in by a medical professional or institution (, PA, DIRECT RESPONSE CONSULTANT, urgent care, hospital, or long term...) When possible be specific @ -[No] Did you speak to anyone other than the patient for history (EMS, parent, family, police, friend...)? What history was obtained from this source @ -[No] Did you review nursing and triage notes (agree or disagree)? Why? @ -[I reviewed and agree with nursing and triage notes] Were old charts reviewed (outside hosp., previous admission, EMS record, old EKG, old radiological studies, urgent care reports/EKG's, long term records)? Report findings @ -[No old charts were reviewed] Differential Diagnosis (chest pain, altered mental status, abdominal pain women, abdominal pain men, vaginal bleeding, weakness, fever, dyspnea, syncope, headache, dizziness, GI bleed, back pain, seizure, CVA, palpatations, mental health, musculoskeletal)? @ -[not applicable] EKG interpreted by me (3pts min.). @ -[As above] X-rays interpreted by me (1pt min.). @ -[None done] CT interpreted by me (1pt min.). @ -[None done] U/S interpreted by me (1pt. min.). @ -[None done] What testing was considered but not performed or refused? (CT, X-rays, U/S, labs)? Why? @ -[None] What meds were considered but not given or refused? Why? @ -[None] Did you discuss the management of the patient with other professionals (professionals i.e. , PA, DIRECT RESPONSE CONSULTANT, lab, RT, psych nurse, director social, beater head, teacher, correctional officer lieutenant, major case detective)? Give summary @ -Case discussed with Kamran Social Work who please that the patient meets inpatient criteria for symptomatic management. Was smoking cessation discussed for >3mins.? @ -Yes Was critical care preformed (if so, how long)? @ -[No] Were there social determinants of health that impacted care today? How? (Homelessness, low income, unemployed, alcoholism, drug addiction, transportation, low edu. Level, literacy, decrease access to med. care, snf, rehab)? @ -Alcoholism Was there de-escalation of care discussed even if they declined (Discuss DNR or withdrawal of care, Hospice)? DNR status @ -[No] What co-morbidities impacted this encounter? (DM, HTN, Smoking, COPD, CAD, Cancer, CVA, ARF, Chemo, Hep., AIDS, mental health diagnosis, sleep apnea, morbid obesity)? @ -[None] Was patient admitted / discharged? Hospital course, mention meds given and route, prescriptions, significant lab abnormalities, going to OR and other p ertinent info. @ -Transfer to psychiatric facility. This is a 47-year-old female presents the emergency department with self-harm. Patient had a thorough history and physical exam performed. Physical laceration to her left forearm. Patient had a total of 24 sutures placed. She tolerated well. She was seen and evaluated by Kamran from social work. He recommends inpatient placement for the patient for further observation. Patient only health in the ER pending [facility] facility placement. Case discussed with Dr. Antunez Jeannine who agrees with plan of care Undiagnosed new problem with uncertain prognosis? @ -[No] Drug Therapy requiring intensive monitoring for toxicity (Heparin, Nitro, Insulin, Cardizem)? @ -[No] Were any procedures done? @ -[No] Diagnosis/symptom? @ -Self Harm - Suicidal Ideation Acute, or Chronic, or Acute on Chronic? @ -Acute Uncomplicated (without systemic symptoms) or Complicated (systemic symptoms)? @ -Uncomplicated Side effects of treatment? @ -[No] Exacerbation, Progression, or Severe Exacerbation? @ -[No] Poses a threat to life or bodily function? How? (Chest pain, USA, LA, pneumonia, PE, COPD, DKA, ARF, appy, cholecystitis, CVA, Diverticulitis, Homicidal, Suicidal, threat to staff... and all critical care pts) @ -Moderate Likelihood - Lab Data Result diagrams: 03/31/23 02:24 03/31/23 02:24 Lab Results 03/30/23 03/31/23 03/31/23 Range/Units 22:09 02:24 02:24 WBC 15.2 H (3.8-10.6) k/uL RBC 5.23 (3.80-5.40) m/uL Hgb 16.1 H (11.4-16.0) gm/dL Hct 46.3 H (34.0-46.0) % MCV 88.5 (80.0-100.0) fL MCH 30.8 (25.0-35.0) pg MCHC 34.8 (31.0-37.0) g/dL RDW 12.9 (11.5-15.5) % Plt Count 362 (150-450) k/uL MPV 7.9 Neutrophils % 65 % Lymphocytes % 28 % Monocytes % 5 % Eosinophils % 1 % Basophils % 0 % Neutrophils # 9.8 H (1.3-7.7) k/uL Lymphocytes # 4.3 (1.0-4.8) k/uL Monocytes # 0.7 (0-1.0) k/uL Eosinophils # 0.1 (0-0.7) k/uL Basophils # 0.0 (0-0.2) k/uL Sodium 137 (137-145) mmol/L Potassium 3.3 L (3.5-5.1) mmol/L Chloride 104 (98-107) mmol/L Carbon Dioxide 18 L (22-30) mmol/L Anion Gap 15 mmol/L BUN 17 (7-17) mg/dL Creatinine 0.51 L (0.52-1.04) mg/dL Est GFR (CKD-EPI)AfAm >90 (>60 ml/min/1.73 sqM) Est GFR (CKD-EPI)NonAf >90 (>60 ml/min/1.73 sqM) Glucose 124 H (74-99) mg/dL Calcium 9.0 (8.4-10.2) mg/dL Total Bilirubin 0.5 (0.2-1.3) mg/dL AST 27 (14-36) U/L ALT 23 (4-34) U/L Alkaline Phosphatase 85 (38-126) U/L Total Protein 7.1 (6.3-8.2) g/dL Albumin 4.4 (3.5-5.0) g/dL Urine Opiates Screen (NotDetected) Ur Oxycodone Screen (NotDetected) Urine Methadone Screen (NotDetected) Ur Propoxyphene Screen (NotDetected) Ur Barbiturates Screen (NotDetected) U Tricyclic Antidepress (NotDetected) Ur Phencyclidine Scrn (NotDetected) Ur Amphetamines Screen (NotDetected) U Methamphetamines Scrn (NotDetected) U Benzodiazepines Scrn (NotDetected) Urine Cocaine Screen (NotDetected) U Marijuana (THC) Screen (NotDetected) Influenza Type A (PCR) Not Detected (Not Detectd) Influenza Type B (PCR) Not Detected (Not Detectd) RSV (PCR) Not Detected (Not Detectd) SARS-CoV-2 (PCR) Not Detected (Not Detectd) 03/31/23 Range/Units 05:54 WBC (3.8-10.6) k/uL RBC (3.80-5.40) m/uL Hgb (11.4-16.0) gm/dL Hct (34.0-46.0) % MCV (80.0-100.0) fL MCH (25.0-35.0) pg MCHC (31.0-37.0) g/dL RDW (11.5-15.5) % Plt Count (150-450) k/uL MPV Neutrophils % % Lymphocytes % % Monocytes % % Eosinophils % % Basophils % % Neutrophils # (1.3-7.7) k/uL Lymphocytes # (1.0-4.8) k/uL Monocytes # (0-1.0) k/uL Eosinophils # (0-0.7) k/uL Basophils # (0-0.2) k/uL Sodium (137-145) mmol/L Potassium (3.5-5.1) mmol/L Chloride (98-107) mmol/L Carbon Dioxide (22-30) mmol/L Anion Gap mmol/L BUN (7-17) mg/dL Creatinine (0.52-1.04) mg/dL Est GFR (CKD-EPI)AfAm (>60 ml/min/1.73 sqM) Est GFR (CKD-EPI)NonAf (>60 ml/min/1.73 sqM) Glucose (74-99) mg/dL Calcium (8.4-10.2) mg/dL Total Bilirubin (0.2-1.3) mg/dL AST (14-36) U/L ALT (4-34) U/L Alkaline Phosphatase (38-126) U/L Total Protein (6.3-8.2) g/dL Albumin (3.5-5.0) g/dL Urine Opiates Screen Not Detected (NotDetected) Ur Oxycodone Screen Not Detected (NotDetected) Urine Methadone Screen Not Detected (NotDetected) Ur Propoxyphene Screen Not Detected (NotDetected) Ur Barbiturates Screen Not Detected (NotDetected) U Tricyclic Antidepress Not Detected (NotDetected) Ur Phencyclidine Scrn Not Detected (NotDetected) Ur Amphetamines Screen Not Detected (NotDetected) U Methamphetamines Scrn Not Detected (NotDetected) U Benzodiazepines Scrn Not Detected (NotDetected) Urine Cocaine Screen Not Detected (NotDetected) U Marijuana (THC) Screen Detected H (NotDetected) Influenza Type A (PCR) (Not Detectd) Influenza Type B (PCR) (Not Detectd) RSV (PCR) (Not Detectd) SARS-CoV-2 (PCR) (Not Detectd) Disposition Clinical Impression: Suicidal ideations, Alcohol abuse, Self-harm Disposition: TRANSFER TO PSYCH HOSP/UNIT Condition: Fair Is patient prescribed a controlled substance at d/c from ED?: No Referrals: None,Stated [REFERRING] - 1-2 days Time of Disposition: 02:52
[2023-03-31] MEDS ORDERED: NICOTINE 7MG/24HR PATCH TRANSDERM STA (01:33)
[2023-03-31] MEDS ORDERED: IBUPROFEN 800 MG TAB PO STA ×3 (01:33→23:32)
[2023-03-31 02:54] LABS: Basophils % (A) 0 %; Eosinophils # (A) 0.1 k/uL (0-0.7); Eosinophils % (A) 1 %; HCT 46.3 % (34.0-46.0); HGB 16.1 gm/dL (11.4-16.0); Lymphocytes # (A) 4.3 k/uL (1.0-4.8); Lymphocytes % (A) 28 %; MCH 30.8 pg (25.0-35.0); MCHC 34.8 g/dL (31.0-37.0); MCV 88.5 fL (80.0-100.0); Mean Platelet Volume 7.9; Monocytes # (A) 0.7 k/uL (0-1.0); Monocytes % (A) 5 %; Neutrophils # (A) 9.8 k/uL (1.3-7.7); Neutrophils % (A) 65 %; Platelet Count 362 k/uL (150-450); RBC 5.23 m/uL (3.80-5.40); RDW 12.9 % (11.5-15.5); WBC 15.2 k/uL (3.8-10.6)
[2023-03-31 03:06] LABS: ALT 23 U/L (4-34); AST 27 U/L (14-36); African American GFR (CKD) >90 (>60 ml/min/1.73 sqM); Albumin 4.4 g/dL (3.5-5.0); Alkaline Phosphatase 85 U/L (38-126); Anion Gap 15 mmol/L; Blood Urea Nitrogen 17 mg/dL (7-17); Carbon Dioxide 18 mmol/L (22-30); Chloride 104 mmol/L (98-107); Glucose 124 mg/dL (74-99); Non-African American GFR(CKD) >90 (>60 ml/min/1.73 sqM); Potassium 3.3 mmol/L (3.5-5.1); Sodium 137 mmol/L (137-145); Total Bilirubin 0.5 mg/dL (0.2-1.3); Total Protein 7.1 g/dL (6.3-8.2)
[2023-03-31 06:10] VITALS: TEMP 98.7
[2023-03-31 06:39] LABS: Amphetamine Screen,Urine Not Detected (NotDetected); Barbiturate Screen,Urine Not Detected (NotDetected); Benzodiazepines Screen,Urine Not Detected (NotDetected); Cocaine Screen,Urine Not Detected (NotDetected); Methadone Screen, Urine Not Detected (NotDetected); Opiate Screen,Urine Not Detected (NotDetected); Oxycodone Screen, Urine Not Detected (NotDetected); Phencyclidine Screen,Urine Not Detected (NotDetected); Tricyclic Antidepressant,Urine Not Detected (NotDetected); Urn Cannabinoid Scrn Detected (NotDetected)
[2023-03-31] MEDS ORDERED: cloNIDine HCL 0.1 MG TAB PO PRN (19:14)
[2023-03-31] MEDS ORDERED: ATORVASTATIN 20 MG TAB PO SCH (21:00)
[2023-03-31] MEDS ORDERED: NALTREXONE HCL 50 MG TAB PO SCH (21:00)
[2023-03-31] MEDS ORDERED: PRAZOSIN 1 MG CAP PO SCH (21:00)
[2023-04-01] MEDS ORDERED: NICOTINE 7MG/24HR PATCH TRANSDERM STA (08:43)
[2023-04-01] MEDS ORDERED: PATIENT'S OWN (Dulaglutide [Trulicity] 3 MG/0.5 ML Each) SQ SCH (09:00)
[2023-04-01] MEDS ORDERED: ERGOCALCIFEROL 1,250 MCG (50,000 IU) CAPSULE PO SCH (09:00)
[2023-04-01] MEDS ORDERED: LISINOPRIL-HCTZ 20-25 MG 1 EACH TAB PO SCH (09:00)
[2023-04-01] MEDS ORDERED: amLODIPine 10 MG TAB PO SCH (09:00)
[2023-04-01] MEDS ORDERED: VENLAFAXINE HCL ER 75 MG CAP PO SCH (09:00)
[2023-04-01] MEDS ORDERED: lamoTRIgine 100 MG TAB PO SCH (09:00)
[2023-04-01] MEDS ORDERED: IBUPROFEN 600 MG TAB PO STA (10:53)
[2023-04-01 13:06] VITALS: BP 142/79; PULSE 76; RESP 16
== END 2023-04-01 13:00 ==
LOC: EC 21:20
DX: S51.812A Laceration without foreign body of left forearm, initial encounter (principal); F17.200 Nicotine dependence, unspecified, uncomplicated; Z20.822 Contact with and (suspected) exposure to COVID-19; Z23 Encounter for immunization; W26.8XXA Contact with other sharp object(s), not elsewhere classified, initial encounter
CPT/HCPCS: 12002; 99284; 90471; 99406; 82075; 36415; 80053; 85025; 80306; 87636; 90715; S4990 ×2; J2001

== ENCOUNTER 2023-11-14 20:34 | Emergency (ER) | payer MEDICARE, OTHER ==
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
[2023-11-14] MEDS: LORazepam 2 MG/ML INJ IM STA (20:51)
[2023-11-14] MEDS: DIPH,PERTUS(ACELL)TETVAC-LF 0.5 ML VIAL IM ONE (21:44)
[2023-11-14 22:50] LABS: Amphetamine Screen,Urine Not Detected (NotDetected); Barbiturate Screen,Urine Not Detected (NotDetected); Benzodiazepines Screen,Urine Detected (NotDetected); Cocaine Screen,Urine Not Detected (NotDetected); Methadone Screen, Urine Not Detected (NotDetected); Opiate Screen,Urine Not Detected (NotDetected); Oxycodone Screen, Urine Not Detected (NotDetected); Phencyclidine Screen,Urine Not Detected (NotDetected); Tricyclic Antidepressant,Urine Not Detected (NotDetected); Urn Cannabinoid Scrn Detected (NotDetected)
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
[2023-11-15 05:21] VITALS: TEMP 97.8
[2023-11-15 06:59] VITALS: BP 109/74; PULSE 85; RESP 18
== END 2023-11-15 06:40 | disposition home or self-care (01) ==
LOC: EC 20:34
DX: S01.01XA Laceration without foreign body of scalp, initial encounter (principal); R45.851 Suicidal ideations; R45.850 Homicidal ideations; F10.129 Alcohol abuse with intoxication, unspecified; F17.290 Nicotine dependence, other tobacco product, uncomplicated; F17.200 Nicotine dependence, unspecified, uncomplicated; Z23 Encounter for immunization; X58.XXXA Exposure to other specified factors, initial encounter
CPT/HCPCS: 99285; 90471; 12001; 96372; 82075; 80306; 72125; 70450; 90715; J2060